=== PATIENT | female | born 1960 | race Caucasian/White ===

== ENCOUNTER 2022-05-19 16:21 | Outpatient (REF) | payer OTHER, SELFPAY ==
--- NOTE | ~2022-05-19 | CT_ITS ---
EXAMINATION: CT SINUS WITHOUT CONTRAST CLINICAL INFORMATION: Headaches. COMPARISON: None TECHNIQUE: 2 mm thin axial and reformatted 2 mm thin sagittal and coronal images of sinuses were obtained. This CT examination was performed using dose optimization techniques as appropriate, variously including the following: *Automated exposure control *Adjustment of mA and/or kV according to patient size (this includes techniques or standardized protocols for targeted exams where dose is matched to indication/reason for exam; i.e. extremities or head) *Use of iterative reconstruction technique DLP: 196 mGy-cm FINDINGS: There is normal aeration of paranasal sinuses without any mucoperiosteal thickening. Bilateral frontoethmoidal and ostiomeatal complex drainage pathways are widely patent. The bony sinus alexandra are intact. Visualized cribriform plate and lamina papyracea are intact. There is normal symmetrical bilateral optic globe, optic nerve, preseptal and postseptal soft tissues. Bilateral mastoid sinuses are clear. The maxillofacial and nasal bones are intact. Bilateral TM joints are symmetrical and normal. Visualized mandible is unremarkable. The craniovertebral junction and the C1-C2 alignment is normal. CT/CT sinus wo con IMPRESSION: Unremarkable CT sinus exam.
== END 2022-05-19 16:22 | disposition home or self-care (01) ==
LOC: HO.CT 16:21
PROVIDERS: Visit Provider Otolaryngology
DX: I33.0 Acute and subacute infective endocarditis (principal); G43.001 Migraine without aura, not intractable, with status migrainosus
CPT/HCPCS: 70486

== ENCOUNTER 2022-07-17 14:56 | Outpatient (REF) | payer OTHER, SELFPAY | END 2022-07-17 14:57 | disposition home or self-care (01) | LOC: HO.LAB 14:56 | PROVIDERS: Visit Provider Otolaryngology | DX: J30.89 Other allergic rhinitis (principal) | CPT/HCPCS: 36415; 86003 ==

== ENCOUNTER 2025-02-08 05:29 | Emergency (ER) | payer OTHER, SELFPAY ==
--- NOTE | 2025-02-08 | ECG_ITS ---
Test Reason : CHEST PAIN Blood Pressure : */* mmHG Vent. Rate : 70 BPM Atrial Rate : 70 BPM P-R Int : 168 ms QRS Dur : 92 ms QT Int : 406 ms P-R-T Axes : 68 15 39 degrees QTcB Int : 438 ms Normal sinus rhythm Incomplete right bundle branch block Borderline ECG When compared with ECG of 11-Aug-2003 16:38, No significant change was found Referred By: Generic ED Physician Electronically Signed By: VERENICE COTTON MD
--- NOTE | ~2025-02-08 | XR_ITS ---
EXAMINATION: XR CHEST CLINICAL INFORMATION: chest pain COMPARISON: None available. TECHNIQUE: Frontal view of the chest was obtained. FINDINGS: The cardiac, hilar, and mediastinal contours are normal. The lungs are clear bilaterally. No pneumothorax or effusion. No focal osseous or soft tissue abnormality. XR/XR chest 1V IMPRESSION: No active pulmonary disease. Electronically signed by: Paolo Stiles MD 02/08/2025 08:01 AM EDT
[2025-02-08 05:38] VITALS: BP 152/80; BP 156/77; PULSE 78; PULSE 90; RESP 20; TEMP 36.2; O2SAT 98; BMI 28.9
[2025-02-08 05:49] VITALS: BP 136/61; PULSE 65; RESP 16; TEMP 37; O2SAT 96
--- NOTE | 2025-02-08 05:50 | MHC.EDTECH ---
Patient was biba from ,home ,ekg taken and was read by Provider ,blood drawn and sent to lab ,Vitals taken ,Patient was hooked up to cardiac rehab nurse and was change into hospital attire ,Call gerardo within Pt reach ,Patient awake watching television ,Plan of care continue .
[2025-02-08 05:56] LABS: MANUAL DIFF FLAG NO
[2025-02-08 05:57] LABS: Basophils Absolute Auto 0.1 X10*3/uL (0.0-0.2); Eosinophils Absolute Auto 0.1 X10*3/uL (0.0-0.4); Eosinophils Percent Auto 2.1 % (0-4); Hematocrit 42.8 % (37.0-47.0); Hemoglobin 13.8 g/dl (12.0-16.0); Imm Gran Abs Auto 0.02 X10*3/uL (0.00-0.03); Imm Gran Pct Auto 0.3 % (0.0-0.4); Lymphocytes Absolute Auto 1.2 X10*3/uL (1.2-4.9); Lymphocytes Percent Auto 19.5 % (20-40); Mean Corpuscular HGB Conc 32.2 g/dl (31.0-35.0); Mean Corpuscular Hemoglobin 30.1 pg (27.0-33.0); Mean Corpuscular Volume 93.4 fL (80.0-98.0); Monocytes Absolute Auto 0.4 X10*3/uL (0.1-1.2); Monocytes Percent Auto 5.9 % (2-11); Neutrophils Absolute Auto 4.3 x10*3/uL (2.0-8.3); Neutrophils Percent Auto 71.2 % (45-73); Platelet Count 182 X10*3/uL (160-400); Red Blood Count 4.58 X10*6/uL (4.20-5.50); Red Cell Distribution Width 13.3 % (11.0-16.0); White Blood Count 6.1 X10*3/uL (4.8-10.8)
[2025-02-08 06:11] LABS: Alanine Aminotransferase 11 U/L (0-31); Alkaline Phosphatase 121 U/L (39-117); Anion Gap 16 (12-20); Aspartate Amino Transferase 22 U/L (5-31); Bilirubin Total 0.3 mg/dL (0.0-1.0); Blood Urea Nitrogen 8 mg/dL (9-16); Calcium 8.9 mg/dL (8.4-10.2); Carbon Dioxide 21 mmol/L (22-29); Chloride 107 mmol/L (96-108); Creatinine Clr Calc Pharmacy 59.8; Estimated Glomerular Filt Rate > 60; Glucose Random 106 mg/dL (60-115); Potassium 4.3 mmol/L (3.3-5.1); Sodium 140 mmol/L (135-145); Total Protein 6.8 g/dL (6.5-8.0)
[2025-02-08 06:18] LABS: Troponin-I High Sensitivity < 2.7 ng/L (<3.5-17.0)
--- OUTSIDE RECORDS SUMMARY | 2025-02-08 06:29 | XMS_ITS | Encounter Summary ---
Author Organization [facility] Address [address] [place] [address] Care Team Providers Care Applied Psychology Chair Name Role Phone Reymundo Gregory MD Primary Care Provider [phone] Reason for Visit * Reason Onset Date Comments armpit burning 02/07/2025 Encounter Details Date Type Department Care Team ([facility] st Contact Info) Description 02/07/2025 Telephone Adult Medicine [address] [phone] Reymundo Gregory MD [address] [place] [id number] armpit burning Social History Tobacco Use Types Packs/Day Years Used Date Smoking Tobacco: Every Day Cigarettes Smokeless Tobacco: Never Alcohol Use Standard Drinks/Week Comments No 0 (1 standard drink = 0.6 oz pur e alcohol) Comments Unknown Sex and Gender Information Value Date Recorded Sex Assigned at Not on file Legal Sex Female 9:48 PM EST Gender Identity Not on file Sexual Orientation Not on file documented as of this encounter Progress Notes * Jacey Cordon RN - 02/07/2025 2:12 PM EDT Speaking with pt. She states she woke up on Thursday and after moving around developed a sharp burning sensation in armpit area, no painful rash noted . The location has no radiated but pt. States whenI'm still it's not bad but when I move it comes right back she is also having throat tightness, she denies any difficulty swallowing and no difficulty breathing and throat tightening also gets worsewith movement. Pt. States she has never experienced this before, no reflux type symptoms, no fever or chills . She has had intermittent shaky feeling but no palpitations or racing heart. I advised with throat tightening that worsens with activity she could be having atypical cp and to call and ambul ance be evaluated in the ER. . Pt. Unsure if she will leticia for ambulance but will call family to take her to ER. * Karla Castillo - 02/07/2025 11:22 AM EDT Patient calling stating she is having tightness in her throat and burning under her left armpit since Thursday, please advise documented in this encounter Plan of Treatment Upcoming Encounters Date Type Department Care Team (Late st Contact Info) Description 05/11/2025 4:30 PM EDT Office Visit Adult Medicine [address] [phone] Tory Suresh PA [address] [place] [phone] 08/02/2025 1:30 PM EST Office Visit Adult [address] [phone] Reymundo Gregory MD [address] [place] [phone] documented as of this encounter Visit Diagnoses Not on filedocumented in this encounter Care Teams Applied Psychology Chair Relationship Specialty Start Date End Date Reymundo Gregory MD [address] [place] [address] PCP - General Internal Medicine 01/15/22 documented as of this encounter
--- OUTSIDE RECORDS SUMMARY | 2025-02-08 06:29 | XMS_ITS | Data Portability ---
Author Organization [facility], [email or web address] Address [address] [place] [phone] Care Team Providers Care Balloon Pilot Name Role Phone [facility] Referring Provider Assessment Encounter Date Assessment Date Assessment LastModified by Organization Details LastModified Time 02/04/2022 02/04/2022 This 61-year-old female with a history of chronic [facility]. She has responded well to prednisone in the past. I ordered Toradol 30 mg IM and call a prescription to her pharmacy for prednisone 20 mg daily for 5 days. She will follow up with her PCP. The patient agreed with this plan. [email or web address] Not available 02/07/2022 09:15:04 02/22/2022 02/22/2022 I have reviewed and agree with the assessment and plan as documented by the it director. I provided real-time medical direction for this encounter and was immediately available to provide additional phone-based assistance as needed. Patient with hx of migraines and reported mastoiditis is seen for typical POTTS sxs. No fevers chills or neck pain. Had ear tube placed w/ ENT yesterday. Did not reach out to ENT office today because they said they woudn't give me prednisone which patient is requesting as this has worked for her in the past. I reviewed that given she is so recently post-op, her surgeon should comment on whether she can safely receive systemic steroids or what the risks are with regards to postop wound healing and infection. Has taken max imitrex and ibuprofen early this morning. Offered and pt accepting IM toradol and discussed appropriate use of NSAIDs going forward. Reportedly has neurology follow up later in February. PATIENT SEEMS UNDERSTANABLY FRUSTRATED AND OVERWHELMED BY ONGOING MIGRAINE SXS IN THE RECENT POST OP STATE. SHE WOULD BENEFIT FROM CARE TEAM ASSISTANCE WITH COORDINATING CARE BETWEEN HER PCP AND ENT WELL ASSITANCE WITH TRYING TO OBTAIN AN EXPEDITED NEUROLOGY APPOINTMENT. [email or web address] Not available 02/22/2022 13:50:34 12/17/2022 12/17/2022 I provided real -time medical direction via phone for this encounter, and was available for additional phone based assistance as needed. I have reviewed and agree with the Assessment and Plan as documented by the Dye Machine Tender. Patient given the opportunity to ask questions. Patient calls for a localized reaction and rash on her chin and on the right upper extremity on her fingers. She states that she has had some hair options and was going to use a hair removal cream but did not do so as the rash erupted. She does state that she has had this before it responded to either antibiotics or steroid cream. She denies any new cosmetics, soaps, detergent. Pictures above. likely a localized eczema and I have prescribed triamcinolone cream to the face not to be used more than 5 days and to the hie and to be used up to 10 days. Patient should follow-up with her PCP should it not resolve. [email or web address] Not available 12/17/2022 17:18:50 Plan of Treatment Reminders Order Date Submit Date Provider Last Modified By Organization Details Last Modified Time Details Appointments None recorded. Lab None recorded. Referral None recorded. Procedures None recorded. Surgeries None recorded. Imaging None recorded. Medication Orders triamcinolo ne acetonide 0.1 % topical cream 2022 023 [facility] [employer] #[id number], [address] [place] [address], [id number], 3 17:17:19 Imitrex 50 mg tablet 2021 022 [facility] [employer] #[id number], [address] [place], [place], [id number], 2 13:08:08 Patient TargetsNo targets recorded. Patient InstructionsNo instructions recorded. Reason for Referral None Reported. Medical Equipment None Reported. Allergies Allergen ID Allergen Name Allergen Category Reaction Reaction Severity Criticality Documentation Date Start Date Code Code System Note Provider Name and Address Organization Details Recorded Time 8454 Bactrim medicatio n Not available Not available Not available 07/26/2024 63377 9 RxNorm Not Available [facility] - production 4 03:44:24 8455 Product containin g penicilli n (product) medicatio n Not available Not available Not available 07/26/2024 19507 8001 SNOMED Not Available [facility] - production 4 03:44:24 Medications Name Sig Start Date Stop Date Status Note LastModified by Organization Details LastModified Time prednisone 10 mg tablet TAKE 1 TABLET BY MOUTH EVERY DAY AFTER A MEAL FOR 14 DAYS active Not Available Not Available No t Available clindamycin HCl 300 mg capsule TAKE 1 CAPSULE BY MOUTH EVERY 6 HOURS active Not Available Not Available No t Available ibuprofen 800 mg tablet TAKE 1 TABLET EVERY 8 HOURS NEEDED FOR PAIN active Not Available Not Available No t Available nicotine (polacrilex) 2 mg gum TAKE 1 PIECE OF GUM EVERY 1-2 HOURS IF NEEDED. MAX 20 PER DAY. active Not Available Not Available No t Available sumatriptan 100 mg tablet TAKE 1/2 TO 1 TABLET BY MOUTH DAILY NEEDED HEADACHE. MAY REPEAT DOSE ONCE AFTER 2 HOURS IF NEEDED. MAX DOSE 200 MG IN 24 HOURS active Not Available Not Available No t Available prednisone 20 mg tablet TAKE 3 TABLETS DAILY FOR 3 DAYS 2 TABLETS FOR 3 DAYS AND 1 TABLET FOR 3 DAYS active Not Available Not Available No t Available prednisone 5 mg tablet TAKE 2 TABLETS BY MOUTH DAILY active Not Available Not Available No t Available clobetasol 0.05 % topical cream active Not Available Not Availabl e Not Available sumatriptan 50 mg tablet TAKE 1 TABLET BY MOUTH NEEDED FOR HEADACHE. MAY REPEAT DOSE 2 HOURS LATER IF HEADACHE PERSISTS. MAX DOSE 2 TABLET / 24 HOURS active Not Available Not Available No t Available doxycycline monohydrate 100 mg tablet TAKE 1 TABLET BY MOUTH TWICE DAILY FOR 10 DAYS active Not Available Not Available No t Available triamcinolone acetonide 0.1 % topical cream APPLY TOPICALLY TO THE AFFECTED AREA TWICE DAILY active Not Available Not Available No t Available amoxicillin 500 mg tablet TAKE 1 TABLET BY MOUTH FOUR TIMES DAILY UNTIL ALL TAKEN active Not Available Not Available No t Available levothyroxine 75 mcg tablet TAKE 1 TABLET BY MOUTH DAILY active Not Available Not Available No t Available oxycodone-doug taminophen 5 mg-325 mg tablet TAKE 1 TABLET BY MOUTH EVERY 6 HOURS NEEDED FOR PAIN active Not Available Not Available No t Available ofloxacin 0.3 % ear drops INSTILL 5 DROPS TO AFFECTED EAR TWICE DAILY active Not Available Not Available No t Available nicotine (polacrilex) 4 mg gum CHEW 1 GUM BY MOUTH EVERY 2 HOURS DO NOT SWALLOW active Not Available Not Available No t Available polymyxin B sulfate 10,000 unit-trimetho prim 1 mg/mL eye drops INSTILL 1 DROP IN LEFT EYE EVERY 4 HOURS FOR 7 DAYS active Not Available Not Available No t Available ergocalcifero l (vitamin D2) 1,250 mcg (50,000 unit) capsule TAKE 1 CAPSULE BY MOUTH 1 TIME A WEEK active Not Available Not Available No t Available ibuprofen 600 mg tablet TAKE 1 TABLET BY MOUTH FOUR TIMES DAILY WITH MEALS NEEDED active Not Available Not Available No t Available polyethylene glycol 3350 17 gram/dose oral powder TAKE 17 GRAMS BY MOUTH EVERY DAY DISSOLVED IN 8 OZ OF WATER active Not Available Not Available No t Available albuterol sulfate HFA 90 mcg/actuation aerosol inhaler INHALE 2 PUFFS INTO THE LUNGS EVERY 4 HOURS NEEDED FOR COUGH OR WHEEZING active Not Available Not Available No t Available fluticasone propionate 50 mcg/actuation nasal spray,suspens ion SHAKE LIQUID AND USE 2 SPRAYS IN EACH NOSTRIL EVERY DAY active Not Available Not Available No t Available loratadine 10 mg tablet TAKE 1 TABLET BY MOUTH EVERY DAY active Not Available Not Available No t Available amoxicillin 875 mg-potassium clavulanate 125 mg tablet TAKE 1 TABLET BY MOUTH TWICE DAILY FOR 5 DAYS active Not Available Not Available No t Available azithromycin 500 mg tablet TAKE 1 TABLET BY MOUTH EVERY DAY FOR 10 DAYS active Not Available Not Available No t Available topiramate 50 mg tablet TAKE 1 TABLET BY MOUTH TWICE DAILY active Not Available Not Available No t Available chlorhexidine gluconate 0.12 % mouthwash active Not Available Not Available No t Available buprenorphine 8 mg-naloxone 2 mg sublingual film DISSOLVE 1.5 FILM UNDER THE TONGUE ONCE DAILY active Not Available Not Available N ot Available [employer] COVID-19 Ag Self Test kit TEST DIRECTED TODAY active Not Available Not Available No t Available Vitals Date Recorded Respiratory rate Oxygen saturation Oxygen saturation in Arterial blood by Pulse oximetry Body weight Heart rate Body temperature Body height Systolic blood pressure Diastolic blood pressure Provider Name and Address Organization Details Last Updated DateTime 2 18 /min 99 % 99 % 84392.7 2 g 80 /min 98.4 [degF] 152.4 cm 145 mm[Hg] 87 mm[Hg] Not Available [facility] - production 2 13:37:28 Date Recorded Heart rate Respiratory rate Oxygen saturation Oxygen saturation in Arterial blood by Pulse oximetry Body temperature Systolic blood pressure Diastolic blood pressure Provider Name and Address Organization Details Last Updated DateTime 2 95 /min 18 /min 98.99 % 98.99 % 98.4 [degF] 172 mm[Hg] 85 mm[Hg] Robert Cody MD [address] [place] [address],[address], [place], [phone] [employer] 2 15:27:57 Date Recorded Heart rate Respiratory rate Oxygen saturation Oxygen saturation in Arterial blood by Pulse oximetry Body temperature Systolic blood pressure Diastolic blood pressure Provider Name and Address Organization Details Last Updated DateTime 2 76 /min 16 /min 100 % 100 % 98.6 [degF] 139 mm[Hg] 65 mm[Hg] Harley abdi MD [address] [place] [address],[address], [place], [phone] [employer] 2 21:00:23 Date Recorded Oxygen saturation Oxygen saturation in Arterial blood by Pulse oximetry Heart rate Body temperature Body weight Respiratory rate Systolic blood pressure Diastolic blood pressure Provider Name and Address Organization Details Last Updated DateTime 3 99 % 99 % 114 /min 97.5 [degF] 71171.0 08 g 14 /min 176 mm[Hg] 90 mm[Hg] Not Available [employer] 3 17:15:18 Date Recorded Oxygen saturation Oxygen saturation in Arterial blood by Pulse oximetry Respiratory rate Body temperature Heart rate Systolic blood pressure Diastolic blood pressure Provider Name and Address Organization Details Last Updated DateTime 2 96 % 96 % 18 /min 98.5 [degF] 94 /min 145 mm[Hg] 80 mm[Hg] Not Available [email or web address] [facility] 2 09:06:16 Social History None recorded. Functional Status None recorded. Mental Status None recorded. Family History Nothing Reported. Medical History No medical history recorded. Gynecological HistoryNo gynecological history recorded. Obstetrics History GPAL:G 0 P 0 0 0 0 Past Encounters Encounter ID Performer Location Encounter Start Date Encounter Closed Date Diagnosis/Indication Diagnosis SNOMED-CT Code Diagnosis ICD10 Code Diagnosis Note [id number] Robetr Cody MD [facility] [address] [place] [phone] 12/19/2021 13:05:25 05/20/2022 11:51:03 Headache 00606110 R51.9 Called pharmacy and spoke to them about dosing of Imitrex. Prescribed dose that would not need PA, which patient can peanut picker this afternoon. No red flag signs necessitat ing alternativ e treatment. [id number] Harley Hutchison MD [facility] [address] [place] [phone] 01/17/2022 20:58:21 06/05/2022 13:35:40 Migraine [id number] G43.909 Patient with severe chronic migraines evaluated for a difficult episode today. She has imitrex but is hesitant to take because she needs it so frequently and has a limited supply. Tylenool has not provided effective relief. No neurologic al symptoms (besides POTTS) or deficits on it director exam. 15mg IM ketorolac given for short-term pain relief. [id number] Austyn Wilson MD [facility] [address] [place] [phone] 02/07/2022 09:06:12 02/07/2022 09:15:21 [id number] Enoc Schmid MD Main - [facility] [address] [place] [phone] 02/22/2022 13:37:26 05/30/2022 15:35:53 Headache [id number] R51.9 [id number] Shelly Pearce MD [facility] [address] [place] [phone] 12/17/2022 17:15:06 12/19/2022 10:12:01 Localized eruption of skin 880176758 R21 Health Concerns Section Related Observation LastModified by Organization Detai ls LastModified Time None Recorded Concern Status LastModified by Organization Details LastModified Time None Recorded Advance Directives Directive None Recorded Payers Insurance Date Sequence Insurance Name Policy Number Policy Malik Covered Member ID Malik Member ID Guarantor Name 01/27/[address] [facility] - DOS PRIOR TO 2022 - DUAL ELIGIBLE (MEDICARE REPLACEMENT/AD VANTAGE - HMO) Mari Reynolds [id number] Mari Reynolds 01/27/[address] [facility] - DOS ON OR AFTER 2022 - DUAL ELIGIBLE - SNF OPTIONS AND ONE CARE (MEDICARE REPLACEMENT/AD VANTAGE - HMO) Mari Reynolds [id number] Mari Reynolds Notes Date Note Type Note Provider Name and Address Organization Details Recorded Time 12/19/2021 text/html HeadacheReported bypatient.Notes:Headac he responsive to imitrex in the past, though currently out of medication. Has also tried tylenol and Motrin with limited effects. No blurry vision or headache. Per it director:Dispatched to a female patient with a headache. upon arrival patient was located sitting in her kitchen. patient is alert and oriented with a patent airway. patient states she has had a migraine off and on for approx. a month with the only relief being Imitrex 100 MG which she is currently out of due to her prescription not being filled until the of this month. patient described the headache as dull and constant and states it goes from the back of her neck to behind her eyes. at this time Robert Cody MD [address] [facility],[address] [facility], [place], [phone], [employer] 12/19/2021 15:28:56 01/17/2022 text/html Dye Machine Tender Visit Summarydispatched to the above location for a female patient cc of migraine. upon arrival patient is laying on her couch with an ice pack on her head. patient states she has been having chronic migraines for a long time and the headache has become unbearable at this time. patient has an RX for Imitrex but is unable to take it due to having to reserve the medications because of insurance reasons. patient states she has been taking Tylenol but has little to no relief. at this time vitals obtained and are as documented. [facility] [place] and states to give the patient 15 MG IM Ketorolac and have her follow up with her DR. at this time 15 MG IM Ketorolac given in the patients left deltoid. patient advised of all red flags and advised to seek treatment if any of the red flags arise. cleared without incident. Harley Hutchison MD [address] [facility],[address], [place], [address], [employer] 01/17/2022 21:00:52 02/04/2022 text/html [facility] Nursing Assessment: Patient Reports: Head pain not relieved by medication greater than 8 hours Chief Complaints: Pain PMH: Other Allergies: Bactrim Comments: Member request [facility] visit for eval states hx chronic mastoiditis increased pain over past few days await ENT visit in 2 days hx migraines Allg: Daypro and Compazine ...................... ...................... ...................... ...................... ...................... ...................... ......... Dye Machine Tender Note: Evaluated pt reporting worsening pain from previously diagnosed chronic mastoiditis. Pt reports ER visit several weeks ago and was treated with course of prednisone which cleared symptoms completely. Pain returned 4 days after course ended and pt has been taking ibuprofen with little relief. Pt reports R sided POTTS from base of skull that wraps around to R forehead. Pt denies neuro symptoms and is neuro intact. Pt has appt with ENT on 02/06 and is requesting treatment until she can get to her appt. Pt reports requesting script of prednisone from PCP but office wants to see her in person and there were no available appts. Vitals obtained and consulted [facility] who ordered 60mg of prednisone to be administered now, along with 30mg of IM toradol. [facility] states he will call in script of prednisone to pt's pharmacy. Meds administered and went over red flags. No further questions or concerns at this time. Disposition: Fulfilled Austyn Wilson MD [address] [facility],[address], [place], [address], [employer] 02/07/2022 09:15:19 02/22/2022 text/html CRC Nursing Assessment: Patient Reports: Head pain not relieved by medication greater than 8 hours Chief Complaints: Headache PMH: Other Allergies: Bactrim, Penicillin Comments: Member calling for [facility] visit hx mastoiditis s/p tubes placed yesterday develop migraine headache since last night ...................... ...................... ...................... ...................... ...................... ...................... ......... Dye Machine Tender Note: Sent to a call for a pt complaining of a migraine since last night. SC6 arrives on scene, pt is alert and oriented, airway is patent. Pt has history of migraines secondary to mastoiditis. Pt had an ear tube placed in right ear yesterday to relieve pain. Pt complains of migraine yesterday before procedure, worsening after the procedure. Pt complains of right side headache with photophobia and 8/10 pain. Prednisone has helped in the past. Pt finished prednisone night and is prescribed Imitrex for pain. Pt denies dizziness, n/v/d, abd pain, or loc. Pt took Ibuprofen 800mg at approx 5am and has had max dosage Imitrex for 24hrs. Pt has requested prednisone, but a new script has not been prescribed due to procedure yesterday. [facility] [place] Toradol 30mg IM to relieve pain. [facility] requests care team coordinate with ENT surgeon and neurologist for follow up care. Toradol injection administered without incident. Red flags discussed. Pt encouraged to call ENT surgeon office to talk about increased pain and plan of care. Pt has no further questions. ...................... ...................... ...................... ...................... ...................... ...................... ......... Disposition: Fulfilled Enoc Schmid MD [address] [facility],[address], [place], [phone], [facility] 02/22/2022 13:50:43 12/17/2022 text/html CRC Nursing Assessment: Chief Complaints: Wound Care PMH: Other Allergies: Bactrim, Penicillin Comments: Member reports having a rash on her face and hands - Redness reported and very Itchy - Dry and patchy - Denies drainage - Denies fever and chills. Folliculitis flare up. Some of her skin seems like acne, other parts are dry and flakey. Peroxide , triple antibiotic cream administered yesterday 24h ago - Earl Pearce MD [address] [place] [address],[address], [place], [phone], [facility] 12/17/2022 17:19:04 OBGyn Episode No OBEpisode recorded.
--- OUTSIDE RECORDS SUMMARY | 2025-02-08 06:29 | XMS_ITS | Encounter Summary ---
Author Organization [facility] Address [address] [place] [id number] Care Team Providers Care Disk And Tape Machine Tender Name Role Phone Reymundo Gregory MD Primary Care Provider [phone] Reason for Referral * Imaging (Routine) - Authorized Specialty Diagnoses / Procedures Referred By Abril rose Referred To Contact Radiology Diagnoses Post-menopausal Procedures BD Bone Density DXA Axial Skeleton Tory Suresh PA [address] [place] [address] Phone: tel: fax: [address] Phone: tel: Referral ID Status Reason Start Date Expiration Date V isits Requested Visits Authorized [id number] Authorized 01/26/2025 01/26/2026 1 1 * Imaging (Routine) - Authorized Specialty Diagnoses / Procedures Referred By Abril rose Referred To Contact Radiology Diagnoses Encounter for screening mammogram for malignant neoplasm of breast Procedures MG Mammo Digital Screening w [place] bilat Tory Suresh PA [address] [place] [address] Phone: tel: fax: [address] Phone: tel: Referral ID Status Reason Start Date Expiration Date V isits Requested Visits Authorized [id number] Authorized 01/26/2025 01/26/2026 1 1 Reason for Visit * Reason Comments Follow-up Med review Encounter Details Date Type Department Care Team (Late st Contact Info) Description 01/26/2025 2:00 PM EDT Office Visit [facility] [address] [place] [phone] Tory Suresh PA [address] [place] [address] Hypothyroidism, unspecified type (Primary Dx); Mild intermittent asthma without complication; Seasonal allergic rhinitis due to pollen; Screening for malignant neoplasm of colon; Encounter for screening mammogram for malignant neoplasm of breast; Post-menopausal; Atopic dermatitis, unspecified type Social History Tobacco Use Types Packs/Day Years Used Date Smoking Tobacco: Every Day Cigarettes Smokeless Tobacco: Never Tobacco Cessation:Ready to Q uit: Not Asked; Counseling Given: Not Answered Alcohol Use Standard Drinks/Week Comments No 0 (1 standard drink = 0.6 oz pur e alcohol) Comments Unknown Sex and Gender Information Value Date Recorded Sex Assigned at Not on file Legal Sex Female 9:48 PM EST Gender Identity Not on file Sexual Orientation Not on file documented as of this encounter Last Filed Vital Signs Vital Sign Reading Time Taken Comments Blood Pressure 136/72 01/26/2025 2:07 PM EDT Pulse 80 01/26/2025 2:07 PM EDT Temperature 36.6 ??C (97.8 ??F) 01/26/2025 2:07 PM ED T Respiratory Rate 14 01/26/2025 2:07 PM EDT Oxygen Saturation - - Inhaled Oxygen Concentration - - Weight 67.6 kg (149 lb) 01/26/2025 2:07 PM EDT Height 152.4 cm (5') 01/26/2025 2:07 PM EDT Body Mass Index 29.1 01/26/2025 2:07 PM EDT documented in this encounter Ordered Prescriptions Prescription Sig Dispense Quantity Refills Last Filled Start Date End Date albuterol HFA (Proventil HFA) 90 mcg/actuation inhaler Inhale 2 puffs by mouth every 4 (four) hours if needed for wheezing or shortness of breath. 6.7 g 2 01/26/2025 clobetasoL (TEMOVATE) 0.05 % cream Apply to affected area twice daily to three times daily for no more than 2-3 weeks then use sparingly on weekends as needed 30 g 01/26/2025 levothyroxine (SYNTHROID, LEVOTHROID) 75 mcg tablet Take 1 tablet (75 mcg total) by mouth 1 (one) time each day. 90 tablet 1 01/26/2025 loratadine (CLARITIN) 10 mg tablet Take 1 tablet (10 mg total) by mouth 1 (one) time each day. 90 tablet 1 01/26/2025 documented in this encounter Progress Notes * MARCELO Apodaca - 01/26/2025 2:00 PM EDTAddended by: TORY SURESH on: 02/06/2025 06:09 PM Modules accepted: Orders * MARCELO Apodaca - 01/26/2025 2:00 PM EDT CHIEF COMPLAINT: Follow-up (Med review) IDENTIFIER: Mari Reynolds is a 64 y.o. old female. Past medical history: migraine headaches, chronic mastoiditis/right eustachian tube dysfunction, hypothyroidism, on Suboxone therapy, chronic smoker and atopic dermatitis History of Present Illness The patient presents for evaluation of thyroid issues, asthma, and weight loss. Thyroid Issues - Thyroid levels need re-evaluation due to previous non-compliance with medication. - Recently she has been compliant with medications. Asthma - Infrequent use of albuterol inhaler, which is kept nearby. Social History Maintains a healthy diet, avoiding fast food and incorporating fruits and vegetables. Lives alone but frequently hosts her son and his family on weekends. Performs daily activities and driving independently. Health maintenance reviewed. Mammogram ordered today and recommended to schedule with radiology.. She is not interested in getting a colonoscopy and I re-order cologuard kit.. Advised for her to schedule an appointment for bone density scan. She is up to date with vaccinations. ROS: See HPI PAST MEDICAL HISTORY: Patient Active Problem List Diagnosis Date Noted Vitamin D deficiency 01/07/2021 Chronic pain of right knee 11/12/2020 ADD (attention deficit disorder) 06/17/2016 Obesity 09/01/2014 Asthma 12/30/2006 Allergic rhinitis 12/30/2006 Depression 12/30/2006 Hypothyroidism 12/30/2006 Migraine without status migrainosus, not intractable 12/30/2006 Past Surgical History: Procedure Laterality Date OTHER SURGICAL HISTORY PROCEDURE: DENIES PREVIOUS SURGERY SOCIAL HISTORY: Social History Tobacco Use Smoking status: Every Day Current packs/day: 0.50 Types: Cigarettes Smokeless tobacco: Never Substance Use Topics Alcohol use: No FAMILY HISTORY: Family History Problem Relation Name Age of Onset Other (Other: Other) Mother CHIRRHOSIS Other cancer Father THROAT Breast cancer Neg Hx Colon cancer Neg Hx Ovarian cancer Neg Hx Family Status Relation Name Status Mother cirrhosis from alcoholism Father throat cancer Neg Hx (Not Specified) No partnership data on file MEDICATIONS DISCONTINUED/REORDERED: Medications Discontinued During This Encounter Medication Reason loratadine (CLARITIN) 10 mg tablet Reorder clobetasoL (TEMOVATE) 0.05 % cream Reorder levothyroxine (SYNTHROID, LEVOTHROID) 75 mcg tablet Reorder albuterol HFA (PROAIR HFA ; PROVENTIL HFA ; VENTOLIN HFA) 90 mcg/actuation inhaler Reorder ACTIVE MEDICATIONS: Outpatient Medications Marked as Taking for the 01/26/25 encounter (Office Visit) with MARCELO Apodaca Medication Sig Dispense Refill buprenorphine-naloxone (SUBOXONE) 8-2 mg per SL film DISSOLVE 1.5 FILM UNDER THE TONGUE ONCE DAILY chlorhexidine (PERIDEX) 0.12 % solution cholecalciferol (VITAMIN D-3) 50 mcg (2,000 unit) capsule Take 1 capsule (2,000 Units total) by mouth 1 (one) time each day. clobetasoL (TEMOVATE) 0.05 % cream Apply to affected area twice daily to three times daily for no more than 2-3 weeks then use sparingly on weekends as needed 30 g 0 fluticasone propionate (FLONASE) 50 mcg/actuation nasal spray 2 Sprays by Each Nare route daily. levothyroxine (SYNTHROID, LEVOTHROID) 75 mcg tablet Take 1 tablet (75 mcg total) by mouth 1 (one) time each day. 90 tablet 1 loratadine (CLARITIN) 10 mg tablet Take 1 tablet (10 mg total) by mouth 1 (one) time each day. 90 tablet 1 [DISCONTINUED] albuterol HFA (PROAIR HFA ; PROVENTIL HFA ; VENTOLIN HFA) 90 mcg/actuation inhaler INHALE 2 PUFFS INTO THE LUNGS EVERY 4 HOURS NEEDED FOR COUGH OR WHEEZING [DISCONTINUED] clobetasoL (TEMOVATE) 0.05 % cream Apply to affected area twice daily to three timesdaily for no more than 2-3 weeks then use sparingly on weekends as needed 30 g 0 [DISCONTINUED] levothyroxine (SYNTHROID, LEVOTHROID) 75 mcg tablet Take 1 tablet (75 mcg total) by mouth 1 (one) time each day. 90 tablet 0 [DISCONTINUED] loratadine (CLARITIN) 10 mg tablet Take 1 Tablet by mouth daily. ALLERGIES: Allergies Allergen Reactions Amoxicillin Nausea And Vomiting Azithromycin Diarrhea Levofloxacin Nausea And Vomiting Oxaprozin Penicillins Hives Nausea. Vomiting Prochlorperazine Suicidal thoughts Sulfamethoxazole-Trimethoprim Other Reaction(s): Not available Tramadol Hcl PHYSICAL EXAM: Vitals: 01/26/25 1407 BP: 136/72 Pulse: 80 Resp: 14 Temp: 36.6 ??C (97.8 ??F) Physical Exam APPEARANCE: Alert and in no acute distress. NECK: Neck supple, no adenopathy, thyroid symmetric and of normal size. HEART: RRR with normal S1 and S2, no murmurs, no gallops. LUNG: Clear to auscultation, no wheezing, rales, or rhonchi. Able to talk in full complete sentences. LABS: Results for orders placed or performed in visit on 09/22/24 HIV Screening Collection Time: 08/30/08 12:00 AM Result Value Ref Range HIV Screening Abstracted Colonoscopy Collection Time: 09/28/10 12:00 AM Result Value Ref Range Colonoscopy No interpretation, abstracted Hepatitis C Screening Collection Time: 07/03/15 12:00 AM Result Value Ref Range Hepatitis C Screening Abstracted Lipid panel Collection Time: 12/30/23 12:00 AM Result Value Ref Range LDL/HDL Ratio 3 0 - 4 Triglycerides 44 0 - 150 mg/dL Cholesterol 212 (A) 0 - 200 mg/dL HDL 76 >=40 mg/dL LDL Cholesterol 128 (A) 0 - 100 mg/dL Hemoglobin A1c Collection Time: 12/30/23 12:00 AM Result Value Ref Range Hemoglobin A1C 5.3 <=6.5 % Annual BMP Blood Test Collection Time: 12/30/23 12:00 AM Result Value Ref Range Annual BMP Blood Test Abstracted IMPRESSION: 1. Hypothyroidism, unspecified type 2. Mild intermittent asthma without complication 3. Seasonal allergic rhinitis due to pollen 4. Screening for malignant neoplasm of colon 5. Encounter for screening mammogram for malignant neoplasm of breast 6. Post-menopausal 7. Atopic dermatitis, unspecified type Assessment & Plan 1. Hypothyroidism - Re-evaluate thyroid levels today. - For now, continue with levothyroxine 75 mcg, take 1 tablet daily. 2. Asthma: Stable - Continue with albuterol as needed. 3. Hyperlipidemia - Last LDL 128 - At this time, I recommend low calorie diet (avoid sweet drinks/snacks, and replace red meat with chicken and fish and increase fresh vegetables intake) and do regular exercises. Atopic dermatitis - Continue with clobetasol cream as needed. Follow-up in 6 months for routine physical examination. I have obtained verbal consent from Mari Reynolds prior to the recording. I have advised Mari Reynolds that she may refuse the recording and require the recording to be turned off at any time during this encounter. I have applied the code G2211 to this patient???s visit as the primary care provider dealing with (list the condition that is/are complex) leading to the extensive work up, and management associated with the medical care of this patient. This patient???s serious conditions and complex medical conditions also required several consultants needing management and coordination through my office. I have reviewed all information as it pertains to the management of this patient for final approval. All questions and concerns were addressed. Mari Reynolds verbalizes understanding and agrees withthis treatment plan. Patient was reminded to call or return to the office if any new or existing problems arise. Orders Placed This Encounter Procedures MG Mammo Digital Screening w [place] bilat BD Bone Density DXA Axial Skeleton Basic metabolic panel Cologuard?? colon cancer screening Thyroid stimulating hormone with reflex to free t4 and free t3 MG MAMMO DIGITAL SCREENING W [place] BILAT BD BONE DENSITY DXA AXIAL SKELETON MACRELO Apodaca on 01/26/2025 at 2:30 PM EDT Today's documentation was made using voice recognition software.This note may contain grammatical errors secondary to this software. documented in this encounter Plan of Treatment Upcoming Encounters Date Type Department Care Team (Late st Contact Info) Description 05/11/2025 4:30 PM EDT Office Visit [address] [phone] Tory Suresh PA [address] [place] [address] 08/02/2025 1:30 PM EST Office Visit [address] [phone] Reymundo Gregory MD [address] [place] [id number] Scheduled Orders Name Type Priority Associated Diagnoses Orde r Schedule Cologuard?? colon cancer screening Lab Routine Screening for malignant neoplasm of colon 1 Occurrences starting 01/26/2025 until 01/26/2026 MG Mammo Digital Screening w [place] bilat Imaging Routine Encounter for screening mammogram for malignant neoplasm of breast 1 Occurrences starting 01/26/2025 until 01/26/2026 BD Bone Density DXA Axial Skeleton Imaging Routine Post-menopausal Expected: 02/09/2025 (Approximate), Expires: 01/26/2026 Thyroid stimulating hormone with reflex to free t4 and free t3 Lab Routine Hypothyroidism, unspecified type Expected: 02/20/2025 (Approximate), Expires: 02/06/2026 documented as of this encounter Results * (ABNORMAL) Thyroid stimulating hormone with reflex to free t4 and free t3 (01/26/2025 2:37 PM EDT) [facility] TSH 8.15(H) 0.40 - 4.00 mcIU/mL LAB CHEMISTRY METHOD 01/26/2025 8:05 PM [facility] Blood Venous blood specimen / Unknown Venipuncture / Unknown 01/26/2025 2:37 PM EDT 01/26/2025 2:37 PM EDT Tory Pema ROBERTSON LAB BLOOD ORDERABLES Fin al Result [facility] [address] [place] [address], [place] [phone] * (ABNORMAL) Basic metabolic panel (01/26/2025 2:37 PM EDT) Sodium 139 133 - 145 mmol/L LAB CHEMISTRY METHOD 01/26/2025 6:24 PM [facility] Potassium 3.5 3.5 - 5.5 mmol/L LAB CHEMISTRY METHOD 01/26/2025 6:24 PM [facility] Chloride 104 96 - 110 mmol/L LAB CHEMISTRY METHOD 01/26/2025 6:24 PM [facility] CO2 28 21 - 32 mmol/L LAB CHEMISTRY METHOD 01/26/2025 6:24 PM [facility] Anion Gap 7 3 - 11 LAB CHEMISTRY METHOD 01/26/2025 6:24 PM [facility] Glucose 113(H) 70 - 100 mg/dL LAB CHEMISTRY METHOD 01/26/2025 6:24 PM [facility] BUN 12 5 - 25 mg/dL LAB CHEMISTRY METHOD 01/26/2025 6:24 PM [facility] Creatinine 0.76 0.50 - 1.10 mg/dL LAB CHEMISTRY METHOD 01/26/2025 6:24 PM [facility] eGFR 87 >=60 mL/min/1. 73m2 LAB CHEMISTRY METHOD 01/26/2025 6:24 PM [facility] Comment:Calculation based on the??Chronic Kidney Disease Epidemiology Collaboration (CKD-EPI) equation refit??without adjustment for race. BUN/Creatinine Ratio 15.8 LAB CHEMISTRY METHOD 01/26/2025 6:[address] [facility] Calcium 9.3 8.5 - 10.5 mg/dL LAB CHEMISTRY METHOD 01/26/2025 6:[address] [facility] Blood Venous blood specimen / Unknown Venipuncture / Unknown 01/26/2025 2:37 PM EDT 01/26/2025 2:37 PM EDT Tory ROBERTSON LAB BLOOD ORDERABLES Fin al Result [facility] [address] [place] [address], [place] [phone] documented in this encounter Visit Diagnoses Diagnosis Hypothyroidism, unspecified type- Primary Mild intermittent asthma without complication Seasonal allergic rhinitis due to pollen Screening for malignant neoplasm of colon Encounter for screening mammogram for malignant neoplasm of breast Post-menopausal Asymptomatic postmenopausal status (age-related) (natural) Atopic dermatitis, unspecified type documented in this encounter Discontinued Medications Medication Sig Discontinue Reason Start Date End Da te loratadine (CLARITIN) 10 mg tablet Take 1 Tablet by mouth daily. Reorder 12/18/2023 01/26/2025 clobetasoL (TEMOVATE) 0.05 % cream Apply to affected area twice daily to three times daily for no more than 2-3 weeks then use sparingly on weekends as needed Reorder 01/13/2025 01/26/2025 levothyroxine (SYNTHROID, LEVOTHROID) 75 mcg tablet Take 1 tablet (75 mcg total) by mouth 1 (one) time each day. Reorder 01/13/2025 01/26/2025 albuterol HFA (PROAIR HFA ; PROVENTIL HFA ; VENTOLIN HFA) 90 mcg/actuation inhaler INHALE 2 PUFFS INTO THE LUNGS EVERY 4 HOURS NEEDED FOR COUGH OR WHEEZING Reorder 01/26/2025 documented as of this encounter Care Teams Disk And Tape Machine Tender Relationship Specialty Start Date End Date Reymundo Gregory MD [address] [place] [address] PCP - General Internal Medicine 01/15/22 documented as of this encounter
--- OUTSIDE RECORDS SUMMARY | 2025-02-08 06:29 | XMS_ITS | Clinical Summary ---
Author Organization [address] Address [address] [place] [phone] Phone Care Team Providers Care Harness Puller Name Role Phone Reymundo Gregory MD Primary Care Provider [phone] Allergies Active Allergy Reactions Criticality Noted Date Comments Amoxicillin Nausea And Vomiting Azithromycin Diarrhea 03/15/2006 Levofloxacin Nausea And Vomiting 03/15/2006 Oxaprozin 07/28/2005 Penicillins Hives 12/30/2021 Nausea. Vomiting Prochlorperazine 07/28/2005 Suicidal thoughts Sulfamethoxazole-Trimethop rim 09/20/2024 Other Reaction(s): Not available Tramadol Hcl 07/28/2005 Medications buprenorphine-n aloxone (SUBOXONE) 8-2 mg per SL film DISSOLVE 1.5 FILM UNDER THE TONGUE ONCE DAILY 1 Active chlorhexidine (PERIDEX) 0.12 % solution Active cholecalciferol (VITAMIN D-3) 50 mcg (2,000 unit) capsule Take 1 capsule (2,000 Units total) by mouth 1 (one) time each day. 4 Active fluticasone propionate (FLONASE) 50 mcg/actuation nasal spray 2 Sprays by Each Nare route daily. 2 Active loratadine (CLARITIN) 10 mg tablet Take 1 tablet (10 mg total) by mouth 1 (one) time each day. 90 tablet 1 5 Active levothyroxine (SYNTHROID, LEVOTHROID) 75 mcg tablet Take 1 tablet (75 mcg total) by mouth 1 (one) time each day. 90 tablet 1 5 Active clobetasoL (TEMOVATE) 0.05 % cream Apply to affected area twice daily to three times daily for no more than 2-3 weeks then use sparingly on weekends as needed 30 g 5 Active albuterol HFA (Proventil HFA) 90 mcg/actuation inhaler Inhale 2 puffs by mouth every 4 (four) hours if needed for wheezing or shortness of breath. 6.7 g 2 5 01/27/20 26 Active albuterol HFA (PROAIR HFA ; PROVENTIL HFA ; VENTOLIN HFA) 90 mcg/actuation inhaler INHALE 2 PUFFS INTO THE LUNGS EVERY 4 HOURS NEEDED FOR COUGH OR WHEEZING 01/27/20 25 Discontinu ed(Reorder ) levothyroxine (SYNTHROID, LEVOTHROID) 75 mcg tablet Take 1 tablet (75 mcg total) by mouth 1 (one) time each day. 90 tablet 4 01/14/20 25 Discontinu ed(Reorder ) clobetasoL (TEMOVATE) 0.05 % cream APPLY TO THE AFFECTED AREA TWICE DAILY TO THREE TIMES DAILY FOR NO MORE THAN 2-3 WEEKS THEN USE SPARINGLY ON WEEKENDS NEEDED 4 01/14/20 25 Discontinu ed(Reorder ) loratadine (CLARITIN) 10 mg tablet Take 1 Tablet by mouth daily. 4 01/27/20 25 Discontinu ed(Reorder ) clobetasoL (TEMOVATE) 0.05 % cream Apply to affected area twice daily to three times daily for no more than 2-3 weeks then use sparingly on weekends as needed 30 g 5 01/27/20 25 Discontinu ed(Reorder ) levothyroxine (SYNTHROID, LEVOTHROID) 75 mcg tablet Take 1 tablet (75 mcg total) by mouth 1 (one) time each day. 90 tablet 5 01/27/20 25 Discontinu ed(Reorder ) Active Problems Problem Noted Date Diagnosed Date Vitamin D deficiency 01/07/2021 Chronic pain of right knee 11/12/2020 ADD (attention deficit disorder) 06/17/2016 Obesity 09/01/2014 Asthma 12/30/2006 Allergic rhinitis 12/30/2006 Depression 12/30/2006 Overview (09/22/2024): Daughter , complications from mono at age 13 Son incarcerated, heroin Hypothyroidism 12/30/2006 Migraine without status migrainosus, not intract able 12/30/2006 Overview (09/22/2024): IMO update Encounters Date Type Department Care Team Description 02/07/2025 Telephone Adult Medicine [facility] [address] [place] [phone] Reymundo Gregory MD armpit burning 01/26/2025 2:00 PM EDT Office Visit Adult Medicine [facility] [address] [place] [phone] Tory Suresh PA Hypothyroidism, unspecified type (Primary Dx); Mild intermittent asthma without complication; Seasonal allergic rhinitis due to pollen; Screening for malignant neoplasm of colon; Encounter for screening mammogram for malignant neoplasm of breast; Post-menopausal; Atopic dermatitis, unspecified type from Last 3 Months Immunizations Name Administration Dates Next Due Influenza Quadravalent, MDCK , 0.5ml, preservative free (Flucelvax) 6mo and older 08/15/2021,09/05/2020 Influenza Quadravalent, MDCK , 0.5ml, with preservative (Flucelvax) 6mo and older 06/23/2017 Influenza Quadrivalent, 0.5m l, preservative free (Fluarix; FluLaval; Fluzone) ages 6mo and older (Afluria) 3yo and older 06/09/2018 Influenza trivalent, 0.5mL, preservative free (Fluarix; FluLaval; Fluzone) ages 6mo and older (Afluria) 3 years and older 07/11/2015 Influenza trivalent, with pr eservative (Fluzone; Afluria) 6mo and older 06/17/2016,07/11/2013 Pneumococcal conjugate 20 va lent (Prevnar 20, PCV 20) 2mo and older 05/23/2024 Pneumococcal polysaccharide 23 valent (Pneumovax 23) 2yo and older 06/23/2017 Rabies Vaccine, For Intramus cular Injection Retired Code 06/22/2016,06/19/2016,03/20/2006,03/16,03/13/2006 Tdap Tetanus diptheria acell ular pertussis (Boostrix; Adacel) 7yo and older 08/15/2015 Surgical History Surgery Date Site/Laterality Comments OTHER SURGICAL HISTORY PROCEDURE: DENIES PREVIOUS SURGERY Medical History Medical History Date Comments Allergic rhinitis, cause unspecified 12/30/2006 DX:Allergic rhinitis, cause unspecified Depressive disorder, not els ewhere classified 12/30/2006 DX:Depressive disorder, not elsewhere classified Unspecified hypothyroidism 12/30/2006 DX:Un specified hypothyroidism Migraine with aura, without mention of intractable migraine without mention of status migrainosus 12/30/2006 DX:Migraine with aura, witho ut mention of intractable migraine without mention of status migrainosus Unspecified asthma(493.90) 12/30/2006 DX:Un specified asthma(493.90) Family History Medical History Relation Name Comments Other cancer Father THROAT Other: Other Mother CHIRRHOSIS Breast cancer Neg Hx Colon cancer Neg Hx Ovarian cancer Neg Hx Relation Name Status Comments Father throat cancer Mother cirrhosis from alcoholism Social History Tobacco Use Types Packs/Day Years [...] on file Sexual Orientation Not on file Obstetrics History Last Filed Vital Signs Vital Sign Reading [...] Mass Index 29.1 01/26/2025 2:07 PM EDT Plan of Treatment Upcoming Encounters Date Type Department Care Team (Late st Contact Info) Description 05/11/2025 4:30 PM EDT Office Visit [address] [phone] Tory Suresh PA [address] [place], [place] [phone] 08/02/2025 1:30 PM EST Office Visit [address] [phone] Reymundo Gregory MD [address] [place], [place] [phone] Health Maintenance Due Date Last Done Comments Breast Cancer Screening 1960 Zoster Vaccines (1 of 2) 2008 RSV Immunization Adult Patients (1 - Risk 60-74 years 1-dose series) 2018 Colorectal Cancer Screening: Colonoscopy 09/06/2022 09/28/2010 Depression Screening 09/06/2022 Medicare Annual Wellness Visit 09/06/2022 Osteoporosis Screening (Bone Density Screening) 09/06/2022 Social Influencers of Health Screening 09/06/2022 Falls Risk Assessment 2023 COVID-19 Vaccine ( season) 2024 12/13/2022, 06/19/2022, 03/22/2021 Influenza Vaccine (Season Ended) 2025 06/19/2022, 08/15/2021, 09/05/2020, Additional history exists DTaP,Tdap,and Td Vaccines (3 - Td or Tdap) 08/15/2025 08/15/2015, 04/16/2004 Cholesterol Screening (Lipid Panel) 12/29/2028 12/30/2023, 12/30/2023 Hepatitis C Screening Completed 07/03/2015 Pneumococcal Vaccine: 50+ Years Completed 05/23/2024, 06/23/2017 HIB Vaccines Aged Out No longer eligi ble based on patient's age to complete this topic HPV Vaccines Aged Out No longer eligi ble based on patient's age to complete this topic Hepatitis A Vaccines Aged Out No long er eligible based on patient's age to complete this topic Hepatitis B Vaccines Aged Out No long er eligible based on patient's age to complete this topic IPV Vaccines Aged Out No longer eligi ble based on patient's age to complete this topic MMR Vaccines Aged Out No longer eligi ble based on patient's age to complete this topic Meningococcal ACWY Vaccine Aged Out N o longer eligible based on patient's age to complete this topic Meningococcal B Vaccine Aged Out No l onger eligible based on patient's age to complete this topic RSV Immunization Patients Under 20 months Aged Out No longer eligible based on patient's age to complete this topic Varicella Vaccines Aged Out No longer eligible based on patient's age to complete this topic Procedures Procedure Name Priority Date/Time Associated Diagnosis Comments TRIIODOTHYRONINE FREE Routine 01/26/2025 2:37 PM EDT Hypothyroidism, unspecified type Mild intermittent asthma without complication Seasonal allergic rhinitis due to pollen Screening for malignant neoplasm of colon Encounter for screening mammogram for malignant neoplasm of breast FREE THYROXINE WITH REFLEX TO FREE TRIIODOTHYRONINE Routine 01/26/2025 2:37 PM EDT Hypothyroidism, unspecified type Mild intermittent asthma without complication Seasonal allergic rhinitis due to pollen Screening for malignant neoplasm of colon Encounter for screening mammogram for malignant neoplasm of breast BASIC METABOLIC PANEL Routine 01/26/2025 2:37 PM EDT Hypothyroidism, unspecified type THYROID STIMULATING HORMONE WITH REFLEX TO FREE T4 AND FREE T3 Routine 01/26/2025 2:37 PM EDT Hypothyroidism, unspecified type Mild intermittent asthma without complication Seasonal allergic rhinitis due to pollen Screening for malignant neoplasm of colon Encounter for screening mammogram for malignant neoplasm of breast LIPID PANEL Routine 12/30/2023 HEPATITIS C SCREENING Routine 07/03/2015 COLONOSCOPY Routine 09/28/2010 from Last 3 Months or Most Recently Relevant to Health Maintenance Results * (ABNORMAL) Thyroid stimulating hormone with reflex to free t4 and free t3 (01/26/2025 2:37 PM EDT) TSH 8.15(H) 0.40 - 4.00 mcIU/mL LAB CHEMISTRY METHOD 01/26/2025 8:05 PM EDT [facility] Blood Venous blood specimen / Unknown Venipuncture / Unknown 01/26/2025 2:37 PM EDT 01/26/2025 2:37 PM EDT [facility] Pema Suresh [place] LAB BLOOD ORDERABLES Fin al Result Performing Organization Address City/[facility]/ZIP Co de Phone Number [facility] [address] [place] [address], [place] [phone] * Free thyroxine with reflex to free triiodothyronine (01/26/2025 2:37 PM EDT) Free T4 1.06 0.70 - 1.80 ng/dL LAB CHEMISTRY METHOD 01/26/2025 9:32 PM EDT [facility] Blood Venous blood specimen / Unknown Venipuncture / Unknown 01/26/2025 2:37 PM EDT 01/26/2025 2:37 PM EDT [facility] Pema ROBERTSON LAB BLOOD ORDERABLES Fin al Result Performing Organization Address City/[facility]/ZIP Co de Phone Number [facility] [address] [place] [address], [place] [phone] * Triiodothyronine free (01/26/2025 2:37 PM EDT) T3, Free 289 230 - 420 pcg/dL LAB CHEMISTRY METHOD 01/26/2025 10:13 PM EDT [facility] Blood Venous blood specimen / Unknown Venipuncture / Unknown 01/26/2025 2:37 PM EDT 01/26/2025 2:37 PM EDT Tory ROBERTSON LAB BLOOD ORDERABLES Fin al Result [facility] [address] [place] [address], * (ABNORMAL) Basic metabolic panel (01/26/2025 2:37 PM EDT) Sodium 139 133 - 145 mmol/L LAB CHEMISTRY METHOD 01/26/2025 6:24 PM EDT [facility] Potassium 3.5 3.5 - 5.5 mmol/L LAB CHEMISTRY METHOD 01/26[facility]2025 6:[facility] Chloride 104 96 - 110 mmol/L LAB CHEMISTRY METHOD 01/26/2025 6:24 PM [facility] CO2 28 21 - 32 mmol/L LAB CHEMISTRY METHOD 01/26/2025 6:24 PM [facility] Anion Gap 7 3 - 11 LAB CHEMISTRY METHOD 01/26/2025 6:24 PM [facility] Glucose 113(H) 70 - 100 mg/dL LAB CHEMISTRY METHOD 01/26/2025 6:24 PM [facility] BUN 12 5 - 25 mg/dL LAB CHEMISTRY METHOD 01/26/2025 6:24 PM [facility] Creatinine 0.76 0.50 - 1.10 mg/dL LAB CHEMISTRY METHOD 01/26/2025 6:24 PM [facility] eGFR 87 >=60 mL/min/1. 73m2 LAB CHEMISTRY METHOD 01/26/2025 6:24 PM [facility] Comment:Calculation based on the??Chronic Kidney Disease Epidemiology Collaboration (CKD-EPI) equation refit??without adjustment for race. BUN/Creatinine Ratio 15.8 LAB CHEMISTRY METHOD 01/26/2025 6:24 PM T [facility] Calcium 9.3 8.5 - 10.5 mg/dL LAB CHEMISTRY METHOD 01/26/2025 6:24 PM EDT [facility] Blood Venous blood specimen / Unknown Venipuncture / Unknown 01/26/2025 2:37 PM EDT 01/26/2025 2:37 PM EDT Tory ROBERTSON LAB BLOOD ORDERABLES Fin al Result [facility] [address] [place] [address], * (ABNORMAL) Lipid panel (12/30/2023) [facility] LDL/HDL Ratio 3 0 - 4 Triglycerides 44 0 - 150 mg/dL Cholesterol 212(A) 0 - 200 mg/dL HDL 76 >=40 mg/dL LDL Cholesterol 128(A) 0 - 100 mg/dL Blood Venous blood specimen / Unknown Historical Provider LAB BLOOD ORDERABLES Liz l Result * Hepatitis C Screening (07/03/2015) Pathologist [facility] Hepatitis C Screening Abstracted Historical Provider HEALTH MAINTENANCE Final Result * Colonoscopy (09/28/2010) Pathologist [facility] Colonoscopy No interpretation , abstracted Anatomical Region Laterality Modality Other Historical Provider HEALTH MAINTENANCE Final Result from Last 3 Months or Most Recently Relevant to Health Maintenance Insurance [facility] MEDIC[facility] Member Subscriber Plan / Payer (Ef fective 2017-Present) Name:Mari Reynolds Relation to Subscriber:Self Name:Mari Reynolds Payer ID:[id number] Group ID:[id number] Type:Not on file Address: [facility] [address] [id number] Care Teams Harness Puller Relationship Specialty Start Date End Date Reymundo Gregory MD [address] [place] [address] PCP - General Internal Medicine 01/15/22
--- NOTE | 2025-02-08 07:13 | ED_ITS ---
HPI - Chest Pain General Chief Complaint: Chest Pain Stated Complaint: CP x3 days pain L breast to throat tightness Time Seen by Provider: 02/08/25 07:05 Source: patient Mode of arrival: ambulatory Limitations: no limitations History of Present Illness HPI narrative: This is a very nice 64 years old female presented to the emergency department with a complaint of chest pain since Thursday pain is sharp in nature worse with movement. No exertional snow diaphoresis. Patient is a smoker no history of diabetes no history of hypertension MD complaint: chest pain Onset (ago): day(s) (3) Timing of current episode: constant Prior episodes: No Onset: during rest Pain location: left chest Pain radiation: none Severity: mild Quality: aching Relieving factors: nothing Exacerbating factors: nothing Context: recent illness Risk Factors Coronary artery disease risk factors: smoking history Thoracic aortic dissection risk factors: none Related Data Previous Rx's ?Medication ?Instructions ?Recorded ibuprofen 800 mg tablet 800 mg PO Q8H PRN pain #20 tabs 02/08/25 Allergies Allergy/AdvReac Type Severity Reaction Status Date / Time No Known Allergies Allergy Verified 02/08/25 05:45 Review of Systems 2 Constitutional: Constitutional: Reports no additional constitutional complaints ENT: Reports system reviewed and no additional complaints, except as documented Cardiovascular: Cardiovascular: Reports no additional cardiovascular complaints [facility] Past Medical History Attestation statement: The following information was validated with the patient. [facility] Narrative: Smoker hypothyroidism Social History Social History Substance Use Type: Marijuana Physical Exam 2 Vital Signs: Vital Signs: Last Vital Signs Temp 98.2 F 02/08/25 09:03 Pulse 56 02/08/25 09:03 Resp 18 02/08/25 09:03 BP 147/61 H 02/08/25 09:03 Pulse Ox 98 02/08/25 09:03 O2 Del Method Room Air 02/08/25 09:03 BMI result Body Mass Index 28.9 Patient looks well is no toxic-appearing no distress Const: General: cooperative Nutritional Appearance: well nourished O rientation/consciousness: patient oriented x3 Limitations: no limitations HEENT: Head: Yes normal to inspection Ears: hearing grossly normal bilaterally General nose exam: Normal external nose present Face and sinus: Yes normal facial exam Mouth: Normal oral and palatal mucosa present Throat: Yes posterior oropharynx normal Neck: Neck: Yes normal visual inspection Thyroid: Thyroid normal Chest: Chest palpation & inspection: normal inspection of the chest Resp: Effort & Inspection: normal respiratory effort Auscultation: clear to auscultation bilaterally Cardio: Jugular venous distension: no JVD Palpation: normal PMI Rate: r egular rate Rhythm: regular rhythm GI: Inspection: Yes normal to inspection Palpation (GI): Soft to palpation, not firm and nontender Auscultation: normal bowel sounds Skin: General skin exam: no rashes or lesions noted and elasticity normal L esions: no lesions Rashes: no rashes Neuro: General: patient oriented x3 Extrem: General: Yes normal to inspection, Yes full ROM and Yes capillary refill normal Course Reevaluation(s) Reevaluation #1: Workup has been completed delta trop is flat D-dimer is negative with negative chest x-ray at this point I think the patient can be discharged home she has been having chest pain for about 3 days no consistent with acute coronary syndrome also PE has been ruled out by the negative D-dimer. Time: 08:39 Medications Administered Discontinued Medications Generic Name Dose Route Start Last Admin Trade Name Freq PRN Reason Stop Dose Admin Ibuprofen 800 mg 02/08/25 07:11 02/08/25 07:45 Ibuprofen 800 Mg Tablet PO 02/08/25 07:12 800 mg ONCE ONE Administration Medical Decision Making Medical Decision Making [facility] Narrative: Patient is here with chest pain we will obtain electrocardiogram chest x-ray I sensitive troponin pain is ongoing for about 3 days. 07:17 1st troponin negative EKG normal, focus cardiac ultrasound normal no pericardial effusion good wall motion 08:39 troponin #2 Negative D-dimer negative Differential Diagnosis Differential Diagnoses: The differential diagnosis associated with the presentation includes ACS/pericarditis/pneumothorax Admission/Observation Consideration of admission/observation: Escalation of care including admission/observation considered Lab Data [facility] Lab Attestation statement: I reviewed the patient's lab results. 02/08/25 05:45 02/08/25 05:45 Labs: Lab Results 02/08/25 02/08/25 Range/Units 05:45 07:21 WBC 6.1 (4.8-10.8) X10*3/uL RBC 4.58 (4.20-5.50) X10*6/uL Hgb 13.8 (12.0-16.0) g/dl Hct 42.8 (37.0-47.0) % MCV 93.4 (80.0-98.0) fL MCH 30.1 (27.0-33.0) pg MCHC 32.2 (31.0-35.0) g/dl RDW 13.3 (11.0-16.0) % Plt Count 182 (160-400) X10*3/uL MPV 10.0 (9.4-12.3) fL Immature Gran % (Auto) 0.3 (0.0-0.4) % Neut % (Auto) 71.2 (45-73) % Lymph % (Auto) 19.5 L (20-40) % [place] % (Auto) 5.9 (2-11) % Eos % (Auto) 2.1 (0-4) % Baso % (Auto) 1.0 (0-2) % Lymph # (Auto) 1.2 (1.2-4.9) X10*3/uL [place] # (Auto) 0.4 (0.1-1.2) X10*3/uL Eos # (Auto) 0.1 (0.0-0.4) X10*3/uL Baso # (Auto) 0.1 (0.0-0.2) X10*3/uL Abs Immat Gran (auto) 0.02 (0.00-0.03) X10*3/uL Absolute Neuts (auto) 4.3 (2.0-8.3) x10*3/uL Absolute Nucleated RBC 0.000 (0.0-0.012) X10*3/uL Nucleated RBC % (auto) 0.0 (0.0-0.2) /100WBC D-Dimer High Sensitivty 189 NG/ML Sodium 140 (135-145) mmol/L Potassium 4.3 (3.3-5.1) mmol/L Chloride 107 (96-108) mmol/L Carbon Dioxide 21 L (22-29) mmol/L Anion Gap 16 (12-20) BUN 8 L (9-16) mg/dL Creatinine 0.79 (0.5-1.4) mg/dL Estim Creat Clear Calc 59.8 Estimated GFR > 60 Random Glucose 106 (60-115) mg/dL Calcium 8.9 (8.4-10.2) mg/dL Total Bilirubin 0.3 (0.0-1.0) mg/dL AST 22 (5-31) U/L ALT 11 (0-31) U/L Alkaline Phosphatase 121 H (39-117) U/L Troponin I High Sens < 2.7 < 2.7 (<3.5-17.0) ng/L Total Protein 6.8 (6.5-8.0) g/dL Albumin 4.0 (3.5-5.0) g/dL Independent Interpretation I performed an independent interpretation of an: EKG and Plain X-Ray Interpretation: Normal sinus rhythm rate [address]-T changes normal EKG Radiology Impression Discussion of test interpretation with radiology: I have reviewed the radiologist's reading. Discharge Plan Discharge Clinical Impression: Chest pain Patient Disposition: Home, Self-Care Instructions: Chest Pain (DC) Additional Instructions: Please call your primary care physician today and make an appointment for follow-up, return to the emergency room if you worse Prescriptions: New ibuprofen 800 mg tablet 800 mg PO Q8H PRN (Reason: pain) Qty: 20 0RF Interventions: ED Discharge Assessment Last Done: 02/08/25 09:03 Discharge Date/Time: 02/08/25 09:18 Print Language: Polish
[2025-02-08 07:36] LABS: D Dimer High Sensitivity 189 NG/ML
[2025-02-08] MEDS: Ibuprofen 800 MG TABLET PO (07:45)
[2025-02-08 07:48] VITALS: BP 147/61; PULSE 56; RESP 18; TEMP 36.8; O2SAT 98
[2025-02-08 07:51] LABS: Troponin-I High Sensitivity < 2.7 ng/L (<3.5-17.0)
--- NOTE | 2025-02-08 07:51 | PC.NURSE ---
pt is alert and oriented, skin pwd, respirations even and unlabored, ls slight expertory wheezing in the bases, pt is reporting left sided chest/breast area pain that started on 02/06/25, pain right now 12/05 but according to the pt pain gets worse with movement, sinus to sinus [place] on the monitor, vs stable
[2025-02-08 09:03] VITALS: BP 147/61; PULSE 56; RESP 18; TEMP 36.8; O2SAT 98
== END 2025-02-08 09:18 | disposition home or self-care (01) ==
PROVIDERS: Emergency Provider Emergency Medicine; PCP Internal Medicine
DX: R07.89 Other chest pain (principal); N64.4 Mastodynia; Z79.899 Other long term (current) drug therapy
CPT/HCPCS: 36415; 71045; 80053; 84484; 85025; 85379; 93005; 99283; 99285

== ENCOUNTER → 2025-02-08 05:35 | Outpatient (BNV) | payer OTHER, SELFPAY | PROVIDERS: Emergency Provider Emergency Medicine; PCP Internal Medicine; Visit Provider Internal Medicine Cardiovascular Disease | DX: I45.10 Unspecified right bundle-branch block (principal) | CPT/HCPCS: 93010 ==

== ENCOUNTER → 2025-02-08 07:06 | Outpatient (BNV) | payer OTHER, SELFPAY | PROVIDERS: Emergency Provider Emergency Medicine; PCP Internal Medicine; Visit Provider Radiology Diagnostic Radiology | DX: R07.9 Chest pain, unspecified (principal) | CPT/HCPCS: 71045 ==